=== PATIENT | male | born 1990 | race Caucasian/White ===

== ENCOUNTER 2018-04-06 10:09 | Inpatient (IN) | payer OTHER ==
[2018-04-06] MEDS ORDERED: LORAZEPAM 2 MG INJ IV (11:00)
[2018-04-06] MEDS ORDERED: ONDANSETRON 4 MG INJ IV (11:00)
[2018-04-06] MEDS ORDERED: ALBUTEROL 0.083% (NEB) 2.5 MG/3 ML AMP HHN (11:00)
[2018-04-06] MEDS ORDERED: ACETAMINOPHEN 325 MG TAB PO (11:00)
[2018-04-06] MEDS ORDERED: NACL 0.9% 3 ML SYG IV ×2 (11:00)
[2018-04-06] MEDS: ESCITALOPRAM 10 MG TAB PO (12:15)
[2018-04-06] MEDS: LORAZEPAM 2 MG INJ IV ×2 (12:49→20:03)
[2018-04-06] MEDS: LACTOBACILLUS RHAMNOSUS CAP PO (13:00)
[2018-04-06] MEDS ORDERED: DIVALPROEX (ER) 250 MG TAB PO (13:00)
[2018-04-06] MEDS: ALBUTEROL 0.083% (NEB) 2.5 MG/3 ML AMP HHN ×2 (13:22→17:06)
[2018-04-06] MEDS: METHYLPREDNISOLONE 125 MG INJ IV (14:06)
[2018-04-06] MEDS: LEVOFLOXACIN 750MG/D5W (PMX) 150 ML IVPB (14:07)
[2018-04-06] MEDS ORDERED: MESALAMINE 1000 MG SUPP PR (21:00)
[2018-04-06] MEDS: QUETIAPINE 100 MG TAB PO (21:04)
[2018-04-06] MEDS ORDERED: hydrALAzine 20 MG INJ IV (21:30)
[2018-04-07] MEDS ORDERED: ESCITALOPRAM 10 MG TAB PO (09:00)
== END 2018-04-06 21:21 | disposition left against medical advice (07) | DRG 202 ==
LOC: TEL 10:09
DX: J45.901 Unspecified asthma with (acute) exacerbation (principal); N17.9 Acute kidney failure, unspecified; F41.9 Anxiety disorder, unspecified
CPT/HCPCS: 94640; 94664

== ENCOUNTER 2018-04-10 00:03 | Emergency (ER) | payer OTHER ==
[2018-04-10] MEDS: ALBUTEROL 0.5% (NEB) 2.5 MG/0.5 ML AMP INH ×2 (00:42→01:37)
[2018-04-10] MEDS: IPRATROPIUM (NEB) 0.5 MG/2.5 ML AMP INH (00:42)
[2018-04-10] MEDS: METHYLPREDNISOLONE 125 MG INJ IV (00:59)
[2018-04-10] MEDS: LORAZEPAM 2 MG INJ IV ×2 (00:59→01:25)
[2018-04-10] MEDS: SOD CHLORIDE 0.9% 1,000 ML IV (01:00)
== END 2018-04-10 02:56 | disposition home or self-care (01) ==
LOC: FTE 00:03
DX: J45.901 Unspecified asthma with (acute) exacerbation (principal); F17.210 Nicotine dependence, cigarettes, uncomplicated
CPT/HCPCS: 94644; 96374; 96375; 99284-25